=== PATIENT | female | born 1990 | race Caucasian/White ===

== ENCOUNTER 2022-06-27 15:33 | Emergency (ER) | payer MEDICAID ==
[~2022-06-27] VITALS: Ht 167.6 cm; Wt 60.8 kg
--- NOTE | 2022-06-27 15:57 | NUR ---
BIBS WITH C/C OF HAVING INTERMITTANT PALPITATIONS WITH ASSOCIATED LIGHT HEADEDNESS. DENIES ANY CURRENT PALPITATIONS. DENIES ANY CP/SOB/N/V AT THIS TIME. NO MEDICAL HX. DENIES TAKING MEDICATIONS/DRUGS/SMOKING/ALCOHOL.
--- NOTE | 2022-06-27 16:00 | NUR ---
PLACED IN BED 3 Addendum: 06/27/22 at 1609 by [email or web address] PLACED IN BED 4, DR. JAY MADE AWARE
--- NOTE | 2022-06-27 16:41 | NUR ---
Pt bib self to ER CC palpitations without chest wall pain. Pt states has recently been attempting holistic measures to deal with anxiety. Pt denies NVD, Pt respirations are even and unlabored. NAD. VSS.
[2022-06-27 16:42] LABS: BASOPHILS # (AUTO) 0.1 K/uL (0.0-0.2); BASOPHILS % (AUTO) 1.1 % (0.0-2.0); EOSINOPHILS # (AUTO) 0.1 K/uL (0.0-0.4); EOSINOPHILS % (AUTO) 0.8 % (0.0-4.0); HEMATOCRIT 39.5 % (36-48); LYMPHOCYTES # (AUTO) 1.1 K/uL (1.0-5.5); LYMPHOCYTES % (AUTO) 14.5 % (20.5-51.5); MEAN CORPUSCULAR HEMOGLOBIN 29 pg (27-31); MEAN CORPUSCULAR HGB CONC 33 % (32-36); MEAN CORPUSCULAR VOLUME 89 fL (79.0-98.0); MONOCYTES # (AUTO) 0.4 K/uL (0.0-1.0); MONOCYTES % (AUTO) 5.8 % (1.7-9.3); NEUTROPHILS # (AUTO) 5.8 K/uL (1.8-7.7); NEUTROPHILS % (AUTO) 77.8 % (40.0-70.0); PLATELET COUNT (AUTO) 225 K/uL (130-430); RED BLOOD CELL COUNT(AUTO) 4.43 MIL/uL (4.2-6.2); RED CELL DISTRIBUTION WIDTH 13.4 % (9.0-15.0); WHITE BLOOD COUNT (AUTO) 7.4 K/uL (4.8-10.8)
[2022-06-27 16:58] LABS: ANION GAP 10 (5-15); CALCIUM 9.4 mg/dL (8.4-11.0); CHLORIDE 105 mmol/L (98-107); CREATININE 0.68 mg/dL (0.55-1.30); GLUCOSE 102 mg/dL (70-99); POTASSIUM 4.1 mmol/L (3.5-5.1); SODIUM SERUM 142 mmol/L (136-145); UREA NITROGEN, BLOOD 8 mg/dL (8-21)
[2022-06-27 17:06] LABS: ALANINE AMINOTRANSFERASE 19 U/L (12-78); ASPARTATE AMINOTRANSFERASE 16 U/L (10-37); TOTAL BILIRUBIN 0.4 mg/dL (0.0-1.0)
[2022-06-27 17:14] LABS: GFR AFRICAN AMERICAN 130 mL/min (>90)
[2022-06-27 18:59] VITALS: BP_SYST 138
== END 2022-06-27 18:20 | disposition home or self-care (01) ==
LOC: SED 15:33
DX: R00.2 Palpitations (principal); F41.9 Anxiety disorder, unspecified; R42 Dizziness and giddiness; Z79.899 Other long term (current) drug therapy
CPT/HCPCS: 36415; 71045; 80053; 83735; 84484; 85025; 93005; 99284

== ENCOUNTER 2022-10-28 10:33 | Emergency (ER) | payer MEDICAID ==
[~2022-10-28] VITALS: Ht 167.6 cm; Wt 63.0 kg
[2022-10-28 10:41] VITALS: BP_SYST 136
[2022-10-28 13:21] VITALS: BP_SYST 135
== END 2022-10-28 13:11 | disposition home or self-care (01) ==
LOC: SED 10:33
DX: K62.5 Hemorrhage of anus and rectum (principal)
CPT/HCPCS: 81002; 81025; 99282

== ENCOUNTER 2024-05-25 06:19 | Emergency (ER) | payer MEDICAID ==
[~2024-05-25] VITALS: Ht 167.6 cm; Wt 63.0 kg
[2024-05-25 06:28] VITALS: BP_SYST 118; PULSE 89; RESP 15; TEMP 97.8; O2SAT 98
[2024-05-25 07:21] LABS: BASOPHILS # (AUTO) 0.1 K/uL (0.0-0.2); BASOPHILS % (AUTO) 1.3 % (0.0-2.0); EOSINOPHILS # (AUTO) 0.1 K/uL (0.0-0.4); EOSINOPHILS % (AUTO) 1.5 % (0.0-4.0); HEMATOCRIT 39.3 % (36-48); LYMPHOCYTES # (AUTO) 1.5 K/uL (1.0-5.5); MEAN CORPUSCULAR HEMOGLOBIN 29 pg (27-31); MEAN CORPUSCULAR HGB CONC 33 % (32-36); MEAN CORPUSCULAR VOLUME 88 fL (79.0-98.0); MONOCYTES # (AUTO) 0.4 K/uL (0.0-1.0); MONOCYTES % (AUTO) 6.8 % (1.7-9.3); NEUTROPHILS # (AUTO) 3.3 K/uL (1.8-7.7); NEUTROPHILS % (AUTO) 62.4 % (40.0-70.0); PLATELET COUNT (AUTO) 219 K/uL (130-430); RED BLOOD CELL COUNT(AUTO) 4.46 MIL/uL (4.2-6.2); RED CELL DISTRIBUTION WIDTH 13.4 % (9.0-15.0); WHITE BLOOD COUNT (AUTO) 5.4 K/uL (4.8-10.8)
[2024-05-25 07:39] LABS: ANION GAP 9 (5-15); CARBON DIOXIDE 26 mmol/L (23-29); CHLORIDE 105 mmol/L (98-107); CREATININE 0.76 mg/dL (0.55-1.30); GFR AFRICAN AMERICAN 113 mL/min (>90); GLUCOSE 92 mg/dL (74-106); POTASSIUM 3.8 mmol/L (3.5-5.1); SODIUM SERUM 140 mmol/L (136-145); UREA NITROGEN, BLOOD 15 mg/dL (8-21)
[2024-05-25 07:40] LABS: GFR NON AFRICAN-AMERICAN 93 mL/min (>90)
[2024-05-25] MEDS: LORazepam 2 MG/ML VIAL IVP ONE (08:30)
[2024-05-25] MEDS: DIPHENHYDRAMINE INJ 50 MG/ML VIAL IVP ONE (08:33)
[2024-05-25] MEDS ORDERED: iohexoL 350 mgI/mL, 100 ML INFUS..BTL IV ONE (08:37)
[2024-05-25 10:08] VITALS: BP_SYST 106; PULSE 86; RESP 20; TEMP 98.1; O2SAT 96
== END 2024-05-25 10:07 | disposition home or self-care (01) ==
LOC: SED 06:19
DX: R07.9 Chest pain, unspecified (principal); Z79.899 Other long term (current) drug therapy
CPT/HCPCS: 99285; 96374; 71275; 71045; 80048; 85025; 85379; 84484; 36415; 81025; Q9967; J1200; J2060